=== PATIENT | female | born 1935 | race Caucasian/White ===

== ENCOUNTER 2020-03-08 08:40 | Observation (INO) | payer MEDICARE, MEDICAID, SELFPAY ==
[2020-03-08] VITALS (16 sets, daily range): BP systolic 115–209; BP diastolic 50–131; PULSE 39–84; RESP 13–26; TEMP 36.3–37; O2SAT 73–98; BMI 35.8
--- NOTE | 2020-03-08 | ECHO_ITS ---
Patient Info Name: Graciela Rangel Age: 84 years : 1935 Gender: Female Ht: 61 in Wt: 189 lbs BSA: 1.96 m2 HR: 67 bpm BP: 151 / 72 mmHg Heart Rhythm: Sinus Rhythm Technical Quality: Good Exam Date: 03/08/2020 1:48 PM Exam Location: [facility] Pulmonary Exam Room: 210 Patient Status: Outpatient Admit Date: 03/08/2020 Staff Ordering Physician: Salas Suarez MD [employer] Consultant: Myrtle Hoskins RDCS Attending Provider: Олег Cook MD Referring Physician: Erick HILARIO; Exam Type: CA echo doppler color flow Study Info Indications - dyspnea bradycardia Complete two-dimensional, color flow and Doppler transthoracic echocardiogram is performed. Summary 1. Left ventricular chamber dimension is normal. 2. Left ventricular systolic function is normal, estimated at >70%. 3. There is mildly increased left ventricular wall thickness. 4. The left ventricular diastolic function is grade I diastolic dysfunction. 5. Left atrial chamber dimension is mildly enlarged. 6. There is mild aortic valve calcification. 7. The mitral valve has calcified annulus. 8. There is mild mitral valve regurgitation. 9. There is mild tricuspid valve regurgitation. 10. There is mild pulmonic regurgitation. Left Ventricle Left ventricular chamber dimension is normal. Left ventricular systolic function is normal, estimated at >70%. There is mildly increased left ventricular wall thickness. The left ventricular diastolic function is grade I diastolic dysfunction. Right Ventricle Right ventricular chamber dimension is normal. Right ventricular systolic function is normal. Left Atria Left atrial chamber dimension is mildly enlarged. Right Atria Right atrial chamber dimension is normal. Atrial Septum Intact interatrial septum visualized by color flow imaging. Aortic Valve The aortic valve is trileaflet. There is moderate aortic valve sclerosis. There is no aortic valve stenosis. There is trace aortic valve regurgitation. There is mild aortic valve calcification. Pulmonic Valve The pulmonic valve is normal. There is no pulmonic valve stenosis. There is mild pulmonic regurgitation. Mitral Valve The mitral valve has calcified annulus. There is no mitral valve stenosis. There is mild mitral valve regurgitation. Tricuspid Valve The tricuspid valve leaflets are normal. There is no significant tricuspid valve stenosis. There is mild tricuspid valve regurgitation. No pulmonary hypertension, estimated pulmonary arterial systolic pressure is 22 mmHg. Pericardium/Pleural The pericardium appears normal. There is no pericardial effusion. Inferior Vena Cava Normal inferior vena cava with >50% collapse upon inspiration consistent with normal right atrial pressure, 10 mmHg. Aorta The aortic root size at the sinus of Valsalva is normal. The prox ascending aorta size is normal. Left Ventricular Outflow Tract Name Value Normal LVOT 2D LVOT Diameter 2.0 cm LVOT Doppler LVOT Peak Gradient 6 mmHg LVOT Mean Gradient 4 mmHg LV
--- NOTE | ~2020-03-08 | XR_ITS ---
XR chest 1V portable DATE: 03/08/2020 09:25 INDICATION: Cough TECHNIQUE: Portable AP chest on 03/08/2020 at 0919 hours COMPARISON: None FINDINGS: There is cardiomegaly. There is pulmonary vascular congestion and redistribution. There are bibasilar infiltrates and/atelectasis, left greater than right. Small pleural effusions may be present. No pneumothorax. Diffuse osteopenia. IMPRESSION: Bibasilar infiltrate and/atelectasis, left greater than right Cardiomegaly, pulmonary vascular redistribution, probable minimal pleural effusions, suggesting conge stive changes Reviewed, dictated and finalized at location A. IMPRESSION: Bibasilar infiltrate and/atelectasis, left greater than right Cardiomegaly, pulmonary vascular redistribution, probable minimal pleural effus ions, suggesting congestive changes
--- NOTE | 2020-03-08 08:57 | ECG_ITS ---
Measurements Intervals [place] Rate: 73 P: 46 MO: 172 QRS: -4 QRSD: 82 T: 12 QT: 352 QTc: 389 Interpretive Statements SINUS RHYTHM ANTERIOR INFARCT, AGE INDETERMINATE INFERIOR INFARCT, AGE INDETERMINATE BASELINE ARTIFACT- I, II, AVR, AVL ABNORMAL ECG Electronically Signed On 03-08-2020 9:05:52 CDT by Raphael Walton D.O.
--- NOTE | 2020-03-08 09:00 | ED.SOB ---
HPI - SOB/Dyspnea General Chief Complaint: Shortness of Breath/Dyspnea Stated Complaint: HTN/SOB Time Seen by Provider: 03/08/20 08:47 Source: RN notes reviewed History of Present Illness HPI Narrative: Patient presents to emergency department via EMS for multiple complaints. The patient was scheduled to have surgery on her left wrist versus today when she went to the surgery center was noted that her blood pressure was high. At that time the patient was given labetalol 10mg IV and IV fluids and the patient was transferred to the ER for further evaluation. Patient states that she is also been having shortness of breath over the past week. States that the shortness of breath will improve after she belches. She states that she has had intermittent abdominal cramping as well as swelling in her legs. Patient also notes increased anxiety as her sister had surgery yesterday and had some complications the patient denies any fevers or chills chest pain vomiting diarrhea or any other symptoms Related Data Home Medications Medication Instructions Recorded Confirmed pentoxifylline 100 mg PO TID 03/08/20 03/08/20 Allergies Allergy/AdvReac Type Severity Reaction Status Date / Time cephalexin [From Keflex] Allergy Anaphylactic Verified 03/08/20 09:01 Shock iodine Allergy Rash Verified 03/08/20 09:01 Penicillins Allergy Rash Verified 03/08/20 09:01 Sulfa (Sulfonamide Allergy Rash Verified 03/08/20 09:01 Antibiotics) steroids AdvReac Anxiety Uncoded 03/08/20 09:01 Review of Systems Review of Systems: Narrative: Gen.: Denies fevers or chills Eyes: Denies eye pain or visual change ENT: Denies congestion Respiratory: Reports shortness of breath CV: Denies chest pain or palpitations GI: Reports intermittent abdominal pain, denies nausea, emesis or diarrhea denies burning, urgency, frequency or hematuria Musculoskeletal: Denies back pain or muscle pain reports lower extremity edema Neuro: Denies numbness, tingling, weakness or focal weakness Skin: Denies rash Except as documented, all other systems reviewed and negative [facility] Past Medical History Medical History (Updated 03/08/20 @ 12:02 by Yovanny Villalta DO) Other bursal cyst, left wrist Family History Family History (Updated 03/08/20 @ 11:47 by Khadijah Cao RN) Mother History of blood clots Father Colon cancer Social History Social History (Updated 03/08/20 @ 09:01 by Yovanny Villalta DO) Smoking status: Never smoker Alcohol intake: never Substance use: never Gender identity (if verbalized by the patient): Female Spiritual care concerns: No Exam Narrative: Exam Narrative: APPEARANCE: No acute distress, nontoxic, resting in bed EYES: EOMI HEENT: Normocephalic, atraumatic, OMM RESPIRATORY: No respiratory distress Clear to auscultation bilaterally with no rhonchi wheezing or rales. CARDIOVASCULAR: Regular rate and rhythm without murmurs rubs or gallops. ABDOMINAL: Soft, nontender, nondistended, no rebound or guarding MUSCULOSKELETAl: Moves all extremities. No clubbing, cyanosis 2+ edema the bilateral lower extremities NEURO: Awake and alert. Following commands, speech normal, no focal deficits SKIN:: Warm, dry. No rashes lesions or abrasions PSYCHIATRIC: Normal affect/mood, Course Course Emergency Course: Patient with continued episodes of bradycardia down into the 40s that is sinus bradycardia patient is asymptomatic during these episodes question whether this is why the patient is been feeling short of breath versus labetalol given Discussed with CONTRACT MAIL CARRIER and Marvin for Dr. Suarez presentation work-up. Agrees with consult at this time Discussed with Dr. Cook presentation work-up. Agrees with admission at this time Discussed with patient and family results of workup and diagnosis. Discussed need for admission. Patient and family understand and agree to current treatment plan Vital Signs Vital signs: Vital Signs Temperature
[2020-03-08 09:18] LABS: Basophils Percent Auto 0.2 % (0.2-1.2); Eosinophils Absolute Auto 0.2 K/mm3 (0-0.3); Eosinophils Percent Auto 1.9 % (0-4.4); Hematocrit 41.8 % (37.0-47.0); Hemoglobin 13.6 g/dL (12.0-15.0); Immature Granulocyte Absolute 0.04 K/mm3 (0.00-0.031); Immature Granulocyte Percent A 0.5 % (0-0.5); Lymphocytes Absolute Auto 1.65 K/mm3 (0.9-3.2); Lymphocytes Percent Auto 20.4 % (18.3-44.2); Mean Corpuscular HGB Conc 32.5 g/dl (32-36); Mean Corpuscular Hemoglobin 27.5 pg (26-34); Mean Corpuscular Volume 84.4 fl (80-100); Mean Platelet Volume 11.7 fl (7.4-10.4); Monocytes Absolute Auto 0.5 K/mm3 (0.1-0.6); Monocytes Percent Auto 6.1 % (2.6-8.5); Neutrophils Absolute Auto 5.7 K/mm3 (1.3-6.7); Neutrophils Percent Auto 70.9 % (45.5-73.1); Platelet Count Result 186 k/mm3 (150-375); Red Blood Count 4.95 M/mm3 (4.2-5.4); Red Cell Distribution Width 14.2 % (11.5-14.5); White Blood Count 8.1 K/mm3 (4.5-10.0)
[2020-03-08 09:19] LABS: Add Urine Microscopic? NO; Appearance Urine Clear (Clear); Bilirubin Urine Negative (Negative); Blood Urine Negative (Negative); Color Urine Colorless (Yellow); Glucose Urine UA Negative (Negative); Ketones Urine Negative (Negative); Leukocyte Esterase Ur Negative LEU/UL (Negative); Nitrate Urine Negative (Negative); Protein Urine Negative (Negative); Specific Grav Ur 1.008 (1.001-1.035); Urobilinogen Urine Negative mg/dL (<2.0)
--- NOTE | 2020-03-08 09:20 | PC.NURSE ---
Pt pulse has episodes of bradicardMD matheus notified. 2nd EKG ordered
--- NOTE | 2020-03-08 09:21 | ECG_ITS ---
Measurements Intervals [place] Rate: 54 P: NM: 0 QRS: 12 QRSD: 83 T: 17 QT: 405 QTc: 384 Interpretive Statements SINUS BRADYCARDIA WITH SINUS ARRHYTHMIA MINIMAL Q WAVES- INFERIOR LEADS CONSIDER ANTERIOR INFARCT, AGE INDETERMINATE BASELINE ARTIFACT- I, II, III, AVR, AVL, AVF ABNORMAL ECG Electronically Signed On 03-08-2020 10:15:32 CDT by Raphael Walton D.O.
[2020-03-08 09:27] LABS: INR 1.1; Prothrombin Time 13.9 Seconds (11.1-14.7)
[2020-03-08 09:28] LABS: Partial Thromboplastin Time 22.6 SECONDS (22.3-36.8)
[2020-03-08 09:30] LABS: Alanine Aminotransferase 11 U/L (4-35); Albumin Level 4.4 g/dL (3.5-5.1); Alkaline Phosphatase 88 U/L (38-126); Anion Gap 7 mmol/L (8-16); Aspartate Amino Transferase 23 U/L (14-36); Bilirubin,Total 0.5 mg/dL (0.2-1.3); Blood Urea Nitrogen 16 mg/dL (7-17); Calcium 9.2 mg/dL (8.4-10.2); Carbon Dioxide 28 mmol/L (22-30); Chloride 103 mmol/L (98-107); Estimated CRCL calculation 51 ml/min; Estimated Glomerular Filt Rate > 60; Glucose 137 mg/dL (65-105); Lipase 82 U/L (23-300); Potassium 3.9 mmol/L (3.4-5.0); Sodium 138 mmol/L (137-145)
[2020-03-08 09:42] LABS: NT Pro B Type Natriuretic Pept 663 PG/ML (5-100); Troponin I < 0.012 ng/mL (0.000-0.034)
--- NOTE | 2020-03-08 11:31 | PC.NURSE ---
This patient, Graciela Rangel, was admitted to IMU Room 210-01. Patient/family oriented to hospital policies and general routines including ID bracelet, bed and alarms, visiting hours, pain management, procedures, bathroom and other care routines, personal items, smoking policy, room service/diet, and visiting hours. Valuables list has been completed. Information on how to activate the Rapid Response Team has been discussed. Patient/Family are encouraged to report perceived risks to care and to ask questions if they do not understand what they are told or what they should do.
--- NOTE | 2020-03-08 12:17 | PM.CNCAR ---
Assessment and Plan Assessment and plan (1) Bradycardia, sinus: Code(s): R00.1 - Bradycardia, unspecified Status: Acute Assessment and Plan: likely a result of the labetalol that was given in the surgery center . Continue monitoring analyst. Check a TSH and free T4 level (2) Acute dyspnea: Code(s): R06.00 - Dyspnea, unspecified Status: Acute Assessment and Plan: she likely has some degree of acute , probable,diastolic congestive heart failure. she does have some congestion on her chest x-ray which was also personally reviewed. She has lower extremity swelling also and has been evaluated at [facility] for dyspnea. I will order 2D echocardiogram with Doppler. Start her on furosemide 40 mg IV daily. First dose now. Initiate lisinopril therapy at 5 mg p.o. daily and up titrate as able /needed. Repeat a basic metabolic panel in the morning. (3) Hypertension: Code(s): I10 - Essential (primary) hypertension Status: Acute Assessment and Plan: start lisinopril (4) Hiatal hernia: Code(s): K44.9 - Diaphragmatic hernia without obstruction or gangrene Status: Acute Assessment and Plan: start Protonix 40 mg p.o. daily especially given her history of heartburn. I have also talked to her and her daughter regarding the importance of following up with a provider in [place]. ischemic evaluation is likely needed also. Whether not this is performed as an inpatient or an outpatient will be dependent on what is found During this admission and response to treatment. History of Present Illness History of Present Illness Consult date/time: 03/08/20 12:17 Requesting physician: Yovanny Villalta DO Consult reason: Other ( bradycardia) Reason For Visit: sinus bradycardia,dyspnea Narrative: chief complaint: Bradycardia, shortness of breath Date of service 03/08/2020 History: Patient is an 84-year-old female he does not have known cardiac history. She lives in the [place] area but her daughter lives in this area. She was visiting and while here had scheduled a surgical procedure to remove a cyst on her left wrist area. She went to the surgery center today and her blood pressure was 220/107. She was given 10 mg of IV labetalol. She then became markedly bradycardic but in sinus rhythm. She therefore was sent to the emergency department for further evaluation. Patient also states that she has been short of breath for the past week or so. Shortness of breath is worsened after eating and whenever she feels heartburn . She then belches and her heartburn symptoms go away and then her shortness breath is relieved. She does have some chronic lower extremity swelling which comes and goes. She states that she has had white coat hypertension in the past. She does not see physicians very regularly. The last Primary care provider she saw was about a year ago. she has had a stressful week this week also as her sister has had surgery. She has had some abdominal bloating feeling also. She does have a hiatal hernia. She denies any syncope, presyncope, paroxysmal nocturnal dyspnea, orthopnea or chest pain. No palpitation Review of Systems Review of Systems: All systems reviewed & are unremarkable except as noted in HPI and below Constitutional: Constitutional: Denies lethargy Eyes: Eyes: Denies blurry vision ENT: Denies Normal hearing present Cardiovascular: Cardiovascular: Denies chest pain Respiratory: Respiratory: Reports dyspnea Gastrointestinal: Gastrointestinal: Reports bloating and Reports heartburn Genitourinary: Genitourinary: Denies hematuria Musculoskeletal: Musculoskeletal: Denies back pain and Denies arthralgias Integumentary/Breasts: Skin/Breast: Denies pruritus and Denies unusual bruising Neurologic: Denies headache(s) and Denies numbness Psychiatric: Psychiatric: Denies anxiety and Denies confusion Endocrine: Endo
--- NOTE | 2020-03-08 13:06 | PM.IMHP ---
H&P: HPI History of Present Illness Date/Time: 03/08/20 13:06 Chief complaint: sinus bradycardia,dyspnea Narrative: date visit 03/08 1150. Graciela Rangel is a 84 year old female with chronic venous insufficiency lower extremities and history of hiatal hernia relates that she has had increasing edema and shortness of breath when lying flat over the last week. Today was at a local surgery center with her daughter when her pressure was elevated and was given IV labetalol and became bradycardic. They had her seen in the emergency room here, systolic pressure was elevated and looked to be mild heart failure so admitted for rx. No chest pain, palpitations, fever, chills, or cough. she has not seen a physician for over a year. She relates that she does not add any extra salt to her food. Review of Systems Review of Systems: Narrative: constitutional weight has been steady appetite good Eye no double vision or scotoma mouth no pharyngitis laryngitis pulmonary as per present illness CV as per present illness GI history hiatal hernia and reflux but no peptic disease. Has had colonoscopy in the past which was negative no dysuria no hematuria muscle skeletal no particular joint discomfort, had cyst on her right wrist that was evaluating at surgery center today neuro no seizure no syncope psych no depression integument no skin breakdown has had venous stasis ulcers past [facility] Past Medical History Medical History (Updated 03/08/20 @ 13:27 by Олег Cook MD) DVT (deep venous thrombosis) Hiatal hernia Other bursal cyst, left wrist Venous insufficiency Surgical History Surgical History (Updated 03/08/20 @ 13:08 by Олег Cook MD) H/O arthroscopic knee surgery H/O hysterectomy for benign disease Family History Family History (Updated 03/08/20 @ 13:10 by Олег Cook MD) Mother , in her 50s History of blood clots Father , age 79, CAD with hx of CABG also Colon cancer Social History Social History (Updated 03/08/20 @ 13:12 by Олег Cook MD) Social History: Lives alone [facility] near [place], [place] has 7 children all grown no occupational exposure Smoking status: Never smoker Alcohol intake: never Substance use: never Gender identity (if verbalized by the patient): Female Spiritual care concerns: No Meds Home Medications and Allergies Home Medications Medication Instructions Recorded Confirmed Type pentoxifylline 100 mg PO TID 03/08/20 03/08/20 History Allergies Allergy/AdvReac Type Severity Reaction Status Date / Time cephalexin [From Keflex] Allergy Anaphylactic Verified 03/08/20 09:01 Shock iodine Allergy Rash Verified 03/08/20 09:01 Penicillins Allergy Rash Verified 03/08/20 09:01 Sulfa (Sulfonamide Allergy Rash Verified 03/08/20 09:01 Antibiotics) steroids AdvReac Anxiety Uncoded 03/08/20 09:01 Vital Signs Vital Signs - 24 hr 03/08/20 08:42 03/08/20 08:58 03/08/20 09:02 Temperature 37.0 C Pulse Rate 84 77 82 Respiratory Rate 20 19 26 H Blood Pressure 209/93 H 209/93 H 209/73 H Pulse Oximetry 95 96 03/08/20 09:32 03/08/20 10:02 03/08/20 10:17 Temperature Pulse Rate 39 L 48 L 43 L Respiratory Rate 13 16 14 Blood Pressure 164/131 H 166/50 H 148/55 H Pulse Oximetry 03/08/20 10:47 03/08/20 11:04 03/08/20 11:49 Temperature 36.7 C Pulse Rate 52 L 51 L 77 Respiratory Rate 15 18 20 Blood Pressure 155/73 H 171/65 H 151/72 H Pulse Oximetry 96 98 73 L 03/08/20 12:00 Temperature Pulse Rate 66 Respiratory Rate Blood Pressure Pulse Oximetry Exam Narrative: Exam Narrative: blood pressure initially in the emergency room systolic 204 and now on the floor 152/72 ,pulse 72, respirations 18 per minute with saturating 98% on room air pupils equal reactive to light sclera anicteric mouth normal poor dentition neck supple no adenopathy thyromega
[2020-03-08 13:52] LABS: T4 Thyroxine 9.89 ug/dL (5.53-11.0)
[2020-03-08 15:41] LABS: Troponin I 0.017 ng/mL (0.000-0.034)
[2020-03-08] MEDS: FUROSEMIDE INJ 40 MG/4 ML VIAL IV PUSH (15:51)
[2020-03-08] MEDS: lisinopriL 5 MG TABLET PO (15:51)
[2020-03-08] MEDS: ENOXAPARIN 40 MG/0.4 ML SYRINGE SUB-Q (20:15)
[2020-03-09] VITALS (7 sets, daily range): BP systolic 140–163; BP diastolic 56–59; PULSE 39–70; RESP 12–18; TEMP 36.2–36.3; O2SAT 91–96
[2020-03-09 04:48] LABS: Basophils Percent Auto 0.2 % (0.2-1.2); Eosinophils Absolute Auto 0.2 K/mm3 (0-0.3); Eosinophils Percent Auto 3.1 % (0-4.4); Hematocrit 37.7 % (37.0-47.0); Immature Granulocyte Absolute 0.04 K/mm3 (0.00-0.031); Immature Granulocyte Percent A 0.7 % (0-0.5); Lymphocytes Absolute Auto 2.14 K/mm3 (0.9-3.2); Lymphocytes Percent Auto 34.8 % (18.3-44.2); Mean Corpuscular HGB Conc 31.8 g/dl (32-36); Mean Corpuscular Hemoglobin 26.9 pg (26-34); Mean Corpuscular Volume 84.5 fl (80-100); Mean Platelet Volume 11.2 fl (7.4-10.4); Monocytes Absolute Auto 0.5 K/mm3 (0.1-0.6); Monocytes Percent Auto 8.5 % (2.6-8.5); Neutrophils Absolute Auto 3.3 K/mm3 (1.3-6.7); Neutrophils Percent Auto 52.7 % (45.5-73.1); Platelet Count Result 173 k/mm3 (150-375); Red Blood Count 4.46 M/mm3 (4.2-5.4); Red Cell Distribution Width 14.3 % (11.5-14.5); White Blood Count 6.2 K/mm3 (4.5-10.0)
[2020-03-09 04:57] LABS: Hemoglobin A1C 5.9 % (<5.7)
[2020-03-09 05:01] LABS: Anion Gap 5 mmol/L (8-16); Blood Urea Nitrogen 21 mg/dL (7-17); Calcium 8.7 mg/dL (8.4-10.2); Carbon Dioxide 31 mmol/L (22-30); Chloride 101 mmol/L (98-107); Estimated CRCL calculation 33 ml/min; Estimated Glomerular Filt Rate 47; Glucose 112 mg/dL (65-105); Potassium 4.1 mmol/L (3.4-5.0); Sodium 137 mmol/L (137-145)
[2020-03-09] MEDS: FUROSEMIDE INJ 40 MG/4 ML VIAL IV PUSH (08:52)
[2020-03-09] MEDS: lisinopriL 5 MG TABLET PO (08:52)
--- NOTE | 2020-03-09 10:28 | PM.PNCARD ---
Progress Note: A&P Assessment and Plan (1) Bradycardia, sinus: Code(s): R00.1 - Bradycardia, unspecified Status: Acute Assessment and Plan: likely a result of the labetalol that was given in the surgery center . She does have bradycardia at night which is likely related to sleep apnea. She needs a sleep study as an outpatient. No beta-channing for now because of nocturnal bradycardia (2) Acute dyspnea: Code(s): R06.00 - Dyspnea, unspecified Status: Acute Assessment and Plan: DC IV furosemide. Start her on oral furosemide 20 mg daily (3) Hypertension: Code(s): I10 - Essential (primary) hypertension Status: Acute Assessment and Plan: increase lisinopril to 10 mg daily (4) Hiatal hernia: Code(s): K44.9 - Diaphragmatic hernia without obstruction or gangrene Status: Acute Assessment and Plan: continue Protonix 40 mg p.o. daily especially given her history of heartburn. I have also talked to her and her daughter regarding the importance of following up with a provider in [place]. ischemic evaluation is likely needed also. Subjective Date/time seen: 03/09/20 10:28 Interval history: reason for admission, chief complaint: Shortness of breath, bradycardia Date of service 03/09/2020: Feels much better. Less short of breath. Less swollen. No chest pain. Able lay flat last night Review of Systems Review of Systems: All systems reviewed & are unremarkable except as noted in HPI and below Constitutional: Constitutional: Denies excessive sweating, Denies headache(s) and Denies lethargy Eyes: Eyes: Denies blurry vision ENT: Denies Normal hearing present, Denies headache(s) and Denies lip swelling Cardiovascular: Cardiovascular: Denies chest pain and Reports dyspnea Respiratory: Respiratory: Reports dyspnea Gastrointestinal: Gastrointestinal: Reports bloating and Reports heartburn Genitourinary: Genitourinary: Denies hematuria Musculoskeletal: Musculoskeletal: Denies back pain, Denies arthralgias and Denies numbness Integumentary/Breasts: Skin/Breast: Denies pruritus and Denies unusual bruising Neurologic: Denies Normal hearing present, Denies confusion, Denies headache(s) and Denies numbness Psychiatric: Psychiatric: Denies anxiety and Denies confusion Endocrine: Endocrine: Denies excessive sweating Hematologic/Lymphatic: Hematologic/Lymphatic: Denies easy bleeding Allergic/Immunologic: Allergic/Immunologic: Denies GI upset with certain foods and Denies lip swelling Exam Narrative: Exam Narrative: alert and oriented and in no distress, pleasant Const: General: no acute distress; No in distress or confusion Orientation/consciousness: No confusion HENMT: General nose exam: Normal nares present Eyes: Sclera: sclerae normal Neck: Neck: supple and no JVD Chest: Other: no reproducible chest wall pain to palpation Resp: Auscultation: crackles Cardio: Rate: regular rate Rhythm: regular rhythm Heart sounds: Murmur heart sound present Skin: General skin exam: normal color Neuro: General: No confusion Cranial nerves: No Normal hearing present Cognition (Neuro): normal cognition Speech: normal speech Extrem: General: normal to inspection Psych: Mental Status: mental status grossly normal Affect: normal affect Objective Data Vital Signs Vital Signs: Vital Signs - 24 hr 03/08/20 10:47 03/08/20 11:04 03/08/20 11:49 Temperature 36.7 C Pulse Rate 52 L 51 L 77 Respiratory Rate 15 18 20 Blood Pressure 155/73 H 171/65 H 151/72 H Pulse Oximetry 96 98 73 L 03/08/20 12:00 03/08/20 14:00 03/08/20 16:00 Temperature 36.6 C Pulse Rate 66 72 74 Respiratory Rate 20 Blood Pressure 115/66 Pulse Oximetry 96 03/08/20 18:00 03/08/20 20:00 03/08/20 22:00 Temperature 36.9 C Pulse Rate 64 80 55 L Respiratory Rate 18 Blood Pressure 149/55 H Pulse Oximetry 97 03/08/20 23:33 08
--- NOTE | 2020-03-14 13:24 | PM.DS ---
DS: Admitting Diagnosis Admitting Diagnosis Admitting Diagnosis: sinus bradycardia,dyspnea DS: Discharge Diagnosis Discharge Diagnosis (1) Acute dyspnea: Code(s): R06.00 - Dyspnea, unspecified Status: Acute Assessment and Plan: acute heart failure, diastolic. Vascular redistribution on chest x-ray, with crackles on physical exam, And peripheral edema. Diuresed with Lasix and Crow added echocardiogram EF >70% with grade 1 diastolic dysfunction and no pul HTN or valve dysfunction (2) Bradycardia, sinus: Code(s): R00.1 - Bradycardia, unspecified Status: Acute Assessment and Plan: probably secondary to labetalol but also noted after admission while sleeping. TSH and suggested to have formal sleep study as outpatient (3) Hypertension: Code(s): I10 - Essential (primary) hypertension Status: Acute Assessment and Plan: IV Lasix given and transitioned to po 20 mg qd, started on Crow, lisinopril 10 mg at d/c (4) Venous insufficiency: Code(s): I87.2 - Venous insufficiency (chronic) (peripheral) Status: Acute Assessment and Plan: has worn compression stockings for years and would continue (5) Hiatal hernia: Code(s): K44.9 - Diaphragmatic hernia without obstruction or gangrene Status: Acute Assessment and Plan: PPI as needed DS: Summary Hospital Course Hospital Course: 84-year-old white female while at a local surgical center was given IV labetalol for increased blood pressure reported at 200 systolic and when became bradycardic was sent to the emergency room here. She is found to be in mild congestive failure and was admitted and treated for the same. Echocardiogram revealed hyperdynamic ventricle with EF of 70% and grade 1 diastolic dysfunction treated with IV Lasix converted to p.o. and lisinopril. Had episodes of bradycardia at night associated with apneic events and patient was encouraged to have outpatient sleep study failure felt on the basis of hypertension and diastolic dysfunction which was greatly improved by the time of discharge BMP ordered for 03/13 Time Spent with Patient Time attestation: Total time spent providing and/or coordinating discharge services: 35 minutes Exam Narrative: Exam Narrative: condition on discharge blood pressure 160/56 pulse is 68 regular saturating 96% on room air afebrile lungs clear CV regular rate rhythm no murmur abdomen soft nontender extremities without edema with chronic venous stasis changes primarily on the left dorsalis pedis posterior tibial 1+ neuro alert cooperative no focal deficits hard of hearing shortness of breath had subsided she was taken a diet well and up and about Discharge Plan Discharge Attending physician on discharge: Олег Cook Consulting providers: Keyon Burdick ; Salas Suarez ; Raphael Walton ; Roger Messer Discharging Clinician: Олег Cook Patient Disposition: Home, Self-Care Activity: as tolerated Diet: low sodium Discharge Instructions: follow up with primary care in [facility] 1-2 weeks, blood work for kidney function and potassium next week. Should have a formal outpatient sleep study scheduled with primary care Patient Instructions: Antibiotic Form, Pentoxifylline (By mouth) Stand Alone Forms: General Discharge Information Follow-up/Referrals: , Primary [Other] (Follow-up with Primary Care Physician in [facility], 1-2 weeks. ) Discharge Medications: New lisinopril 10 mg tablet 10 mg PO DAILY Qty: 30 RF: 0 furosemide [Lasix] 20 mg tablet 20 mg PO DAILY Qty: 30 RF: 0 Continued pentoxifylline 400 mg Tablet Extended Release 100 mg PO TID Qty: 100 RF: 0 Other Ambulatory Orders: Basic Metabolic Panel (Routine) Timeframe: [id number] Location: Determined by Patient Ordered By: Олег Cook Date of admission: 03/08/20 10:04 Primary Care Provider: RYAN
== END 2020-03-09 13:30 | disposition home or self-care (01) ==
LOC: ANHED 09:04 → ANHIMU 10:36
PROVIDERS: Internal Medicine Cardiovascular Disease; Admitting Provider Internal Medicine; Emergency Provider Emergency Medicine; Visit Provider Internal Medicine
DX: I11.0 Hypertensive heart disease with heart failure (principal); I50.9 Heart failure, unspecified; R00.1 Bradycardia, unspecified; R06.00 Dyspnea, unspecified; I87.2 Venous insufficiency (chronic) (peripheral); K44.9 Diaphragmatic hernia without obstruction or gangrene; Z86.718 Personal history of other venous thrombosis and embolism; Z79.899 Other long term (current) drug therapy
CPT/HCPCS: 36415; 71045; 80048; 80053; 81003; 83036; 83690; 83735; 83880; 84436; 84443; 84484; 85025; 85610; 85730; 93005; 93306; 96372; 96374; 96376; 99285; A9270; G0378; J1650; J1940